=== PATIENT | female | born 1985 | race Asian ===

== ENCOUNTER → 2016-09-21 | Outpatient (CLI) | payer OTHER ==
[~2016-09-21] MED LIST: PREN1TAB62 PO
--- NOTE | 2016-09-21 15:55 | RADRPT ---
PROCEDURE: I- 131 therapy CLINICAL INDICATION: 31 -year-old patient with hyperthyroidism, for I - 131 ablation. TECHNIQUE: On September 21, 2016, 16.1 mCi of I - 131 were administered orally to the patient. COMPARISON: No prior treatments. FINDINGS: The patient was advised about the nature of the treatment, alternatives, benefits, risks, side effec ts in radiation safety precautions. Written informed consent was obtained. No immediate complications were observed. IMPRESSION: 16.1 mCi of oral I - 131 therapy. RPTAT: QQ .Megan Alvarez MD, MD Date Time Electronically viewed and signed by .Megan Alvarez MD, MD on 09/21/2016 15:54 .L/
== END | disposition home or self-care (01) ==
LOC: NUC 13:17
PROVIDERS: ATTEND Specialist
DX: E05.00 Thyrotoxicosis with diffuse goiter without thyrotoxic crisis or storm (principal)
CPT/HCPCS: 79005; A9517

== ENCOUNTER → 2017-03-15 | Outpatient (CLI) | payer OTHER ==
--- NOTE | 2017-03-15 17:03 | RADRPT ---
PROCEDURE: I- 131 therapy CLINICAL INDICATION: 31 -year-old patient with hyperthyroidism, for I - 131 ablation. TECHNIQUE: On March 15, 2017, 24.6 mCi of I - 131 were administered orally to the patient. COMPARISON: No prior treatments. FINDINGS: The patient was advised about the nature of the treatment, alternatives, benefits, risks, side effec ts in radiation safety precautions. Written informed consent was obtained. No immediate complications were observed. IMPRESSION: 24.6 mCi of oral I - 131 therapy. RPTAT: QQ .Megan Alvarez MD, MD Date Time Electronically viewed and signed by .Megan Alvarez MD, on 03/15/2017 17:02 .L/
== END | disposition home or self-care (01) ==
LOC: NUC 13:20
PROVIDERS: ATTEND Specialist
DX: E05.90 Thyrotoxicosis, unspecified without thyrotoxic crisis or storm (principal)
CPT/HCPCS: 79005; 84703; A9517